=== PATIENT | female | born 1975 | race Two or more races ===

== ENCOUNTER 2022-01-02 17:56 | Emergency (ER) | payer SELFPAY ==
[~2022-01-02] VITALS: Ht 152.4 cm; Wt 72.6 kg
[2022-01-03 00:18] VITALS: BP 114/78
== END 2022-01-03 00:49 | disposition home or self-care (01) ==
LOC: ER 17:56
DX: S61.211A Laceration without foreign body of left index finger without damage to nail, initial encounter (principal); W25.XXXA Contact with sharp glass, initial encounter; Y93.89 Activity, other specified; Y92.89 Other specified places as the place of occurrence of the external cause; Y99.8 Other external cause status
CPT/HCPCS: 12001